=== PATIENT | female | born 1955 | race Caucasian/White ===

== ENCOUNTER 2025-01-27 08:13 | Inpatient (IN) | payer OTHER ==
[~2025-01-27] VITALS: Ht 167.6 cm; Wt 100.8 kg
[2025-01-27] VITALS (14 sets, daily range): BP systolic 93–128; BP diastolic 56–82; PULSE 77–96; RESP 15–19; TEMP 96.7–98; O2SAT 91–99
[~2025-01-27 08:13] MED LIST: BIOT1TAB5 PO; BLAC1CAP4 PO; CALC-437 OR; MULT-733 OR; PROBTAB12 OR; ROSU10TA16 PO
[2025-01-27] MEDS ORDERED: fentaNYL CITRATE 100 MCG/2 ML VL ONE (09:17)
[2025-01-27] MEDS ORDERED: ONDANSETRON HCL 4 MG/2 ML VIAL ONE (09:17)
[2025-01-27] MEDS ORDERED: PROPOFOL 10 MG/ML 20 ML IV ONE (09:17)
[2025-01-27] MEDS ORDERED: KETAMINE 50mg/ML 1ml syringe ONE (09:17)
[2025-01-27] MEDS ORDERED: MORPHINE SULF PF 5 MG/10 ML VIAL ONE (09:17)
[2025-01-27] MEDS ORDERED: KETOROLAC TROMETH 30 MG/ML 1ML VIAL ONE (09:17)
[2025-01-27] MEDS ORDERED: ePHEDrine SULFATE 50 MG/ML AMP ONE (09:17)
[2025-01-27] MEDS ORDERED: GLYCOPYRROLATE 0.2 MG/ML 1ML VIAL ONE (09:17)
[2025-01-27] MEDS ORDERED: MIDAZOLAM HCL 2MG/2ML 2ml VIAL (1mg/ml) ONE ×2 (09:17→10:44)
[2025-01-27] MEDS ORDERED: DexAMETHasone SOD PHOS 10MG/1ML VIAL INJ ONE (10:22)
[2025-01-27] MEDS ORDERED: ONDANSETRON HCL 4 MG/2 ML VIAL IV PRN ×3 (11:15→13:30)
--- NOTE | 2025-01-27 11:21 | DVHOP2 ---
Operative Report - 2 Report Details Date: 01/27/25 Preop Diagnosis: Left hip degenerative arthritis Postop Diagnosis: Left hip degenerative arthritis Surgeon: Arnulfo Mendez MD [employer] Supervisor: Renetta ESPINOZA Anesthesiologist: Jaylen Anesthesia: Regional Drains: Nirav closed wound suction Implant: Barbara cup size 54, flat poly, size 14 DonJoy origin stem with delta head 0 neck length 36 diameter, Consent: The patient was informed of the risks and benefits of the procedure. These include but are not limited to complications of anesthesia, postoperative infection, incomplete relief of symptoms, recurrence of symptoms, damage to blood vessels, nerves and tendons, deep venous thrombosis, pulmonary embolism and possible need for repeat surgery in the future. Complications: None Estimated Blood Loss: 200 cc Fluids: See anesthesia record Findings: Denuded cartilage with eburnated bone osteophytes Indications for Surgery: Left hip degenerative arthritis with severe pain and functional impairment despite nonoperative management Name of Procedure Performed Left total hip arthroplasty Procedure Details Procedure Details: The patient was brought to the operating room and given spinal anesthetic with adequate analgesia obtained. The patient was positioned lateral decubitus with the operative side up, stabilized with hip positioners. Axillary roll applied a nd lower extremities well-padded. Preop patient received IV Ancef, cefepime and IV tranexamic acid. Surgical timeout was performed verifying patient, laterality and procedure. The hip and lower extremity were prepped and draped in sterile fashion. Incision was made over the greater trochanter. Subcutaneous dissection and hemostasis were performed with Bovie and aqua mantis. I identified the fascia which was incised with Bovie and Charnley retractor inserted. I identified the gluteus medius that was split at the junction of its anterior and middle thirds with Bovie then incised off the anterior greater trochanter. I incised the anterior gluteus minimus which was elevated off the capsule. I elevated the reflected head of the rectus. I then performed anterior capsulectomy with Bovie. I extended capsular incision posterior medially and superior laterally. The head was dislocated. Femoral neck cut was made with saw and head removed. Head diameter was calipered on the back table. I adjusted retractors to expose the acetabulum. I circumferentially removed labral tissue with Bovie. I removed foveal tissue with Bovie, curette and rongeur. I then began reaming sequentially paying attention to inclination and version as I went. I trialed which was stable so acetabular implant was brought into the field and tapped into the acetabulum with good fixation achieved. I then brought up the flat liner which was spun to make sure there was no soft tissue entrapment then tapped in and stability verified. I then brought my attention to the proximal femur. The leg was placed in the sterile bag anteriorly. I cleaned up soft tissue at the greater trochanter shoulder with Bovie. I then used a rongeur to clip the lateral neck. I then used a box osteotome, canal finder and lateralizing rasp. I sequentially broached to size 14. I revised the femoral neck cut with calcar planer. I trialed with a [0] neck length and [36] head which was stable. Intraoperative AP pelvis x-ray was obtained to verify length, offset and implant size. The hip was dislocated. Neck and head trial removed. Broach was removed. I tapped in the femoral implant with good fixation achieved. I trialed the minus three neck length which was not stable. I cleaned and dried the Graham taper and tapped on the ceramic head with a 0 neck length. The hip was again reduced and tested for stability which was good. I irrigated with xperience. I placed a 2 grams of vancomycin in the deep and superficial wound. I repaired the minimus and medius to the anterior greater trochanter with #[5] FiberWire in running fashion . I oversewed the repair with 0 Vicryl. I repaired the fascia with #1 Ethibond interrupted [id number]. Deep subcutaneous tissue was closed with 0 Vicryl. Superficial subcutaneous tissue was closed with 2-0 Vicryl. The skin was closed with marcelino. I then applied the Nirav closed wound suction. Patient tolerated the procedure well and was brought to the recovery room in stable condition. Condition Stable Disposition Still a Patient ARNULFO MENDEZ MD Jan 27, 2025 11:21
[2025-01-27] MEDS ORDERED: oxyCODONE HCL 5MG TAB PO PRN ×2 (11:30)
[2025-01-27] MEDS ORDERED: NALOXONE HCL 0.4 MG/ML VIAL IV PRN (11:45)
[2025-01-27] MEDS: ONDANSETRON HCL 4 MG/2 ML VIAL IV ONE (11:45)
[2025-01-27] MEDS ORDERED: diphenhdrAMINE HCL 50 MG/1 ML VL IV PRN (11:45)
[2025-01-27] MEDS ORDERED: KETOROLAC TROMETH 30 MG/ML 1ML VIAL IV PRN (11:45)
[2025-01-27] MEDS ORDERED: DexAMETHasone SOD PHOS 10MG/1ML VIAL INJ IV PRN (11:45)
[2025-01-27] MEDS ORDERED: KETOROLAC TROMETH 30 MG/ML 1ML VIAL IV SCH (12:00)
--- NOTE | 2025-01-27 12:04 | DVH ---
CLINICAL INDICATION: postop TECHNIQUE: 1 radiographic views of the pelvis were obtained. Comparison: None FINDINGS/IMPRESSION: Status post left hip arthroplasty.
--- NOTE | 2025-01-27 12:24 | DVH ---
CLINICAL INDICATION: postop TECHNIQUE: 1 radiographic views of the pelvis were obtained. Comparison: None FINDINGS/IMPRESSION: There is no evidence of acute fracture or dislocation. Postsurgical changes from left hip arthroplasty.
[2025-01-27] MEDS: ceFAZolin 2 GM/D5W50ml 50 ML IV ONE (14:10)
[2025-01-27] MEDS: CEFEPIME 1GM/ 50ML 50 ML IV ONE (14:10)
[2025-01-27] MEDS: VANCOMYCIN HCL 1000 MG VL ONE (14:11)
[2025-01-27] MEDS: TRANEXAMIC ACID 20 ML ONE (14:11)
[2025-01-27] MEDS: ACETAMINOPHEN 325 MG TAB PO SCH (14:37)
[2025-01-27] MEDS: ceFAZolin 2 GM/D5W50ml 50 ML IV SCH (14:40)
[2025-01-27] MEDS: SODIUM CHLORIDE 0.9% 1,000 ML IV SCH (14:41)
[2025-01-27] MEDS: PREGABALIN 25 MG CAP PO SCH (20:43)
[2025-01-27] MEDS: SULFAMETHOX W/TRIMETH(800/160MG) DS TAB PO SCH (20:43)
[2025-01-28] VITALS (17 sets, daily range): BP systolic 91–109; BP diastolic 48–64; PULSE 80–88; RESP 16–19; TEMP 36.9; O2SAT 91–96
[2025-01-28 00:02] LABS: Basophils # (auto) 0 10 ^3/uL (0-0.2); Basophils % (auto) 0.1 % (0.0-2.0); Eosinophils # (auto) 0 10 ^3/uL (0-0.8); Hematocrit 32.7 % (36.0-46.0); Hemoglobin 11.4 g/dL (12.2-16.2); Lymphocytes # (auto) 0.5 10 ^3/uL (0.4-5.4); Lymphocytes % (auto) 6.4 % (10.0-50.0); Mean Corpuscular Hgb Conc. 34.9 g/dL (32.0-36.0); Mean Corpuscular Volume 85.9 fL (80.0-100.0); Monocytes # (auto) 0.5 10 ^3/uL (0-1.3); Monocytes % (auto) 6.4 % (0.0-12.0); Neutrophils # (auto) 6.5 10 ^3/uL (1.6-8.6); Neutrophils % (auto) 87.1 % (37.0-80.0); Platelet Count (auto) 184 10^3/uL (140-450); Red Blood Cells 3.81 10^6/uL (4.0-5.20); Red Cell Distribution Width 13.9 % (11.8-14.3); White Blood Cell 7.5 10^3/uL (4.4-10.8)
[2025-01-28 07:24] LABS: Potassium 4.6 mmol/L (3.5-5.1); Sodium 140 mmol/L (136-145)
[2025-01-28 07:25] LABS: Anion Gap 8 (5-15); Carbon Dioxide 25 mmol/L (20-31)
[2025-01-28 07:30] LABS: BUN/Creatinine Ratio 16.7 (10.0-20.0); Blood Urea Nitrogen 12 mg/dL (9-23)
[2025-01-28 07:34] LABS: Basophils # (auto) 0 10 ^3/uL (0-0.2); Basophils % (auto) 0.1 % (0.0-2.0); Eosinophils # (auto) 0 10 ^3/uL (0-0.8); Hematocrit 29.1 % (36.0-46.0); Hemoglobin 10.3 g/dL (12.2-16.2); Lymphocytes # (auto) 0.6 10 ^3/uL (0.4-5.4); Lymphocytes % (auto) 8.1 % (10.0-50.0); Mean Corpuscular Hemoglobin 30.7 pg (28.0-32.0); Mean Corpuscular Hgb Conc. 35.4 g/dL (32.0-36.0); Mean Corpuscular Volume 86.8 fL (80.0-100.0); Monocytes # (auto) 0.8 10 ^3/uL (0-1.3); Monocytes % (auto) 10.1 % (0.0-12.0); Neutrophils # (auto) 6.2 10 ^3/uL (1.6-8.6); Neutrophils % (auto) 81.7 % (37.0-80.0); Platelet Count (auto) 166 10^3/uL (140-450); Red Blood Cells 3.36 10^6/uL (4.0-5.20); Red Cell Distribution Width 14.2 % (11.8-14.3); White Blood Cell 7.6 10^3/uL (4.4-10.8)
[2025-01-28 07:38] LABS: Chloride 107 mmol/L (98-107); Glucose 128 mg/dL (74-106)
[2025-01-28] MEDS: APIXABAN 2.5 MG TAB PO SCH (09:05)
--- NOTE | 2025-01-28 12:43 | DVHDS2 ---
Discharge Summary Date of Admission Jan 27, 2025 at 11:28 Date of Discharge: Jan 28, 2025 Labs/Diagnostic Data: Laboratory Results Test 01/28/25 06:19 White Blood Count 7.6 10^3/uL (4.4-10.8) Red Blood Count 3.36 10^6/uL (4.0-5.20) Hemoglobin 10.3 g/dL (12.2-16.2) Hematocrit 29.1 % (36.0-46.0) Mean Corpuscular Volume 86.8 fL (80.0-100.0) Mean Corpuscular Hemoglobin 30.7 pg (28.0-32.0) Mean Corpuscular Hemoglobin Concent 35.4 g/dL (32.0-36.0) Red Cell Distribution Width 14.2 % (11.8-14.3) Platelet Count 166 10^3/uL (140-450) Mean Platelet Volume 8.0 fL (6.9-10.8) Neutrophils (%) (Auto) 81.7 % (37.0-80.0) Lymphocytes (%) (Auto) 8.1 % (10.0-50.0) Monocytes (%) (Auto) 10.1 % (0.0-12.0) Eosinophils (%) (Auto) 0.0 % (0.0-7.0) Basophils (%) (Auto) 0.1 % (0.0-2.0) Neutrophils # (Auto) 6.2 10 ^3/uL (1.6-8.6) Lymphocytes # (Auto) 0.6 10 ^3/uL (0.4-5.4) Monocytes # (Auto) 0.8 10 ^3/uL (0-1.3) Eosinophils # (Auto) 0 10 ^3/uL (0-0.8) Basophils # (Auto) 0 10 ^3/uL (0-0.2) Nucleated Red Blood Cells 0.0 % Sodium Level 140 mmol/L (136-145) Potassium Level 4.6 mmol/L (3.5-5.1) Chloride Level 107 mmol/L (98-107) Carbon Dioxide Level 25 mmol/L (20-31) Anion Gap 8 (5-15) Blood Urea Nitrogen 12 mg/dL (9-23) Creatinine 0.72 mg/dL (0.550-1.02) Glomerular Filtration Rate Calc 89 mL/min (>90) BUN/Creatinine Ratio 16.7 (10.0-20.0) Serum Glucose 128 mg/dL (74-106) Calcium Level 9.0 mg/dL (8.7-10.4) Other Laboratory Tests 01/28/25 06:19 Brief Hx & Hospital Course: Patient was brought to the hospital yesterday to undergo a total hip arthroplasty. She tolerated the procedure well without complications and was kept overnight for postoperative observation. She has remained medically stable denying any overnight events and reports that she was able to get up and walk with the help of physical therapy and her walker and was able to get down the matias and back to her room with minimal pain. Patient is otherwise feeling well denying any other complaints or concerns during my evaluation and is ready to go home. Condition at Discharge: Stable Final Diagnosis/Problems List Left hip degenerative arthritis Discharge Disposition: Home Discharge Instruct/Medications Diet: Regular Activity: See Comment Activity comment: Patient to remain weight-bearing as tolerated with the assistance of a walker Follow Up/Referral: I instructed the patient to follow up with our office in 10-14 days for her 1st postoperative evaluation Medications: Rx sent via our outpatient EMR system Discharge Statement: "Patient was advised to return to the ER or call 911 if any headaches, dizziness, shortness of breath, chest pain, abdominal pain, bleeding, fevers, or worsening of medical condition. Patient was counseled about treatment plan, medications, possible side effects, patientverbalized understanding. All questions were answered to the best of my ability. This discharge took greater then 30 minutes in planning, reviewing documentation, counseling the patient, and discussing with other team members." DME: Diagnosis: total hip ASSESSMENT ASSESSMENT Assessment Left hip degenerative arthritis ANTOINETTE DEWEY Jan 28, 2025 12:43
--- NOTE | 2025-01-28 12:45 | DVHPN2 ---
Progress Note - Dictate Date Seen: Jan 28, 2025 Medical Necessity Reason Pt with a Central, PICC or Fol: No Subjective Patient was lying comfortably in bed during my evaluation reports some postoperative hip pain that is somewhat improved with the help of pain medication. Patient reports that she was able to get up and walk with the help of physical therapy and her walker and was able to get down to the nurse's station and back to her room with some postoperative hip pain but felt stable. Patient is otherwise feeling well denying any other complaint or concern during my evaluation and is ready to go home. vital signs Vital Sign Date Time Temp Pulse Resp B/P (MAP) Pulse Ox O2 Delivery O2 Flow Rate FiO2 01/28/25 12:32 98.5 86 19 101/57 (72) 96 98.5 01/28/25 07:43 Room Air* 0 21 21 Total Intake and Output 01/27/25 01/27/25 01/28/25 15:00 23:00 07:00 Intake Total 100 ml 200 ml 850 ml Balance 100 ml 200 ml 850 ml medications Current Medications Medications Dose Ordered Sig/Luis Route Start Time Stop Time Status Last Admin Dose Admin Pregabalin 50 mg BID PO 01/27/25 22:00 01/28/25 09:05 50 MG Apixaban 2.5 mg BID PO 01/28/25 10:00 03/04/25 09:59 01/28/25 09:05 2.5 MG Sodium Chloride 1,000 ml @ 125 mls/hr Q8H IV 01/27/25 11:30 01/28/25 03:30 125 MLS/HR Acetaminophen 650 mg Q6HP PO 01/27/25 12:00 01/28/25 11:09 650 MG Ketorolac Tromethamine 15 mg Q6HR IV 01/27/25 12:00 02/01/25 11:59 UNV Oxycodone HCl 5 mg Q4HP PRN PO 01/27/25 11:30 Oxycodone HCl 10 mg Q4HP PRN PO 01/27/25 11:30 Trimethoprim/ Sulfamethoxazole 1 tab Q12HR PO 01/27/25 22:00 01/28/25 09:05 1 TAB Diphenhydramine HCl 25 mg Q4HP PRN IV 01/27/25 11:45 Ondansetron HCl 4 mg Q4HP PRN IV 01/27/25 11:45 UNV Ketorolac Tromethamine 15 mg Q6HP PRN IV 01/27/25 11:45 02/01/25 11:44 Ondansetron HCl 4 mg Q4HPRN PRN IV 01/27/25 13:30 objective A&O x4 in no acute distress Hip range of motion grossly limited with pain on movement Nirav dressing clean, dry, intact, and maintaining suction No distal edema or calf tenderness to palpation Neurovascularly intact with cap refill less than 2 seconds laboratory and microbiology Laboratory Tests 01/28/25 06:19 Test 01/28/25 06:19 Range/Units Serum Glucose 128 H 74-106 mg/dL Assessment/Plan Patient to be discharged home and advised to remain weight-bearing as tolerated with the assistance of a walker. I instructed the patient to follow up with our office in 10-14 days for her 1st postoperative evaluation and to maintain her dressings clean, dry, intact, and maintaining suction. I also advised the patient to call our office if she has any questions or concerns. Rx sent via our outpatient EMR system. She understood and agreed. Plan discussed with: Patient ANTOINETTE DEWEY Jan 28, 2025 12:45
== END 2025-01-28 16:20 | disposition home or self-care (01) | DRG 470 ==
LOC: SUR 08:13 → OVERFLOW 11:28 → TELE-EAST 15:52
PROVIDERS: ADMIT Orthopaedic Surgery; ATTEND Orthopaedic Surgery
PROC: 0SRB0JZ Replacement of Left Hip Joint with Synthetic Substitute, Open Approach (ICD-10-PCS; principal; 2025-01-27 09:28)
DX: M16.12 Unilateral primary osteoarthritis, left hip (principal)
CPT/HCPCS: 36415; 72170; 80048; 85025; 86850; 86900; 86901; 97110; 97116; 97163; 97530; G0378; J1100; J1885; J2250; J2405; J2704